=== PATIENT | male | born 1975 | race American Indian/Alaskan Native ===

== ENCOUNTER 2016-06-19 20:50 | Emergency (ER) | payer SELFPAY ==
[2016-06-19 22:06] VITALS: BP 163/105; TEMP 98; O2SAT 98
[2016-06-19] MEDS ORDERED: Sodium Chloride 0.9% 1,000 ML IV ONE (22:29)
[2016-06-19] MEDS ORDERED: Sodium Chloride 0.9% 500 ML IV ONE (22:29)
--- NOTE | 2016-06-19 22:32 | C.PDOC ---
History Of Present Illness 40 y/o male presents to the ED with complains of feeling unsteady the past few days. Pt reports walking [id number]. Pt admits to heavy alcohol intake over the past few days. Pt denies headache, vomiting, chest pain, SOB or any other complaints. Chief Complaint (Nursing): Dizziness/Lightheaded History Per: Patient History/Exam Limitations: no limitations Onset/Duration Of Symptoms: Days Current Symptoms Are (Timing): Still Present Possible Causative Factor(s): Recent Alcohol Fall Associated With With Symptoms: No Recent travel outside of the [place]: No - Symptoms Of CVA Recent Head Trauma: No Past Medical History Reviewed: Historical Data, Nursing Documentation, Vital Signs Vital Signs: Last Vital Signs Temp 98 F 06/19/16 22:03 Pulse 69 06/19/16 22:03 Resp 20 06/19/16 22:03 BP 163/105 H 06/19/16 22:03 Pulse Ox 98 06/19/16 23:45 Family History: States: Unknown Family Hx - Social History Hx Alcohol Use: Yes Hx Substance Use: No - Immunization History Hx Tetanus Toxoid Vaccination: No Hx Influenza Vaccination: No Hx Pneumococcal Vaccination: No Review Of Systems Except As Marked, All Systems Reviewed And Found Negative. Cardiovascular: Negative for: Chest Pain Respiratory: Negative for: Shortness of Breath Gastrointestinal: Negative for: Vomiting Neurological: Positive for: Other (unsteady gait). Negative for: Headache Physical Exam - Physical Exam Appears: Non-toxic, No Acute Distress Skin: Warm, Dry, No Rash Head: Atraumatic, Normacephalic Eye(s): bilateral: PERRL, EOMI Neck: Normal ROM, Supple Chest: Symmetrical Cardiovascular: Rhythm Regular, No Murmur Respiratory: Normal Breath Sounds, No Rales, No Rhonchi, No Wheezing Gastrointestinal/Abdominal: Soft Extremity: No Pedal Edema Extremity: Bilateral: Atraumatic Neurological/Psych: Oriented x3, Normal Speech, Normal Cognition, Normal Cranial Nerves, Normal Motor, Normal Sensation ED Course And Treatment - Laboratory Results Result Diagrams: 06/19/16 23:09 06/19/16 23:09 O2 Sat by Pulse Oximetry: 98 (on room air) Pulse Ox Interpretation: Normal - CT Scan/US CT head Other Rad Studies (CT/US): Read By Radiologist, Radiology Report Reviewed CT/US Interpretation: EXAM: CT Head Without Intravenous Contrast. CLINICAL HISTORY: 40 years old, male; Pain; Headache. TECHNIQUE: Axial computed tomography images of the head/brain without intravenous contrast. This CT exam. was performed using one or more of the following dose reduction techniques: automated exposure. control, adjustment of the mA and/or kV according to patient size, and/or use of iterative. reconstruction technique. COMPARISON: No relevant prior studies available. FINDINGS: Brain: No intracranial hemorrhage. No mass. No definite edema. Ventricles: No hydrocephalus. Bones/ joints: No acute fracture. Soft tissues: Unremarkable. Sinuses: Complete opacification of RIGHT frontal sinus. Scattered minimal mucosal thickening of. ethmoid sinuses. Tiny LEFT maxillary retention cyst. Mastoid air cells: No mastoid effusion. Orbits: Unremarkable as visualized. IMPRESSION: 1. No acute intracranial abnormality. 2. Sinus disease. 3. Incidental/non-acute findings are described above. Thank you for allowing us to participate in the care of your patient. Dictated and Authenticated by: Issa Morse MD. 06/19 11:44 PM Eastern Time ([place] & [place]) Medical Decision Making Medical Decision Making: Plan: CT head, EKG, labs, IV fluids Disposition Counseled Patient/Family Regarding: Diagnosis - Disposition Referrals: [facility] [Outside] Disposition: HOME/ ROUTINE Disposition Time: 02:42 Condition: STABLE Prescriptions: Meclizine [Antivert] 25 mg PO Q6 #20 tab Instructions: Vertigo (ED), Dizziness (ED), Abuse of Alcohol (ED) - POA Present On Arrival: None - Clinical Impression Clinical Impression: Dizziness, Vertigo, Alcohol abuse - Scribe Statement The provider has reviewed the documentation as recorded by the Edgar Lamas Provider Attestation: All medical record entries made by the Edgar were at my direction and personally dictated by me. I have reviewed the chart and agree that the record accurately reflects my personal performance of the history, physical exam, medical decision making, and the department course for this patient. I have also personally directed, reviewed, and agree with the discharge instructions and disposition.
[2016-06-19 23:20] LABS: CHLORIDE 97 mmol/L (98-107); POTASSIUM 3.9 mmol/L (3.6-5.2); SODIUM 137 mmol/L (132-148)
[2016-06-19 23:21] LABS: BASO % 0.4 % (0.0-2.0); EOS # 0.2 K/uL (0.0-0.7); EOS % 3.9 % (0.0-4.0); HEMATOCRIT 45.2 % (35.0-51.0); LYMPH # 2.3 K/uL (1.0-4.3); LYMPH % 38.8 % (20.0-40.0); MEAN CELL VOLUME 88.3 fL (80.0-94.0); MEAN CORPUSCULAR HEMOGLOBIN 29.4 pg (27.0-31.0); MEAN CORPUSCULAR HGB CONC 33.2 g/dL (33.0-37.0); MEAN PLATELET VOLUME 7.5 fL (7.2-11.7); MONO # 0.7 K/uL (0.0-0.8); MONO % 11.9 % (0.0-10.0); NRBC % 0.2 % (0.0-2.0); RED CELL DISTRIBUTION WIDTH 12.5 % (11.5-14.5); WHITE BLOOD COUNT 5.9 K/uL (4.8-10.8)
[2016-06-19 23:22] LABS: GFR AFRICAN-AMERICAN > 60
[2016-06-19 23:23] LABS: ALB/GLOB RATIO 1.1 (1.0-2.1); ALKALINE PHOSPHATASE 90 U/L (38-126); ALT/SGPT 38 U/L (21-72); AST/SGOT 31 U/L (17-59); BILIRUBIN,TOTAL 0.9 mg/dL (0.2-1.3); BLOOD UREA NITROGEN 19 mg/dL (9-20); CALCIUM 9.3 mg/dl (8.6-10.4); CARBON DIOXIDE 28 mmol/L (22-30); GLUCOSE,RANDOM 91 mg/dL (75-110); TOTAL PROTEIN 7.7 g/dL (6.3-8.3)
[2016-06-19 23:24] LABS: ALCOHOL SERUM < 10 mg/dl (0-10)
--- NOTE | 2016-06-19 23:44 | CT ---
EXAM: CT Head Without Intravenous Contrast. CLINICAL HISTORY: 40 years old, male; Pain; Headache TECHNIQUE: Axial computed tomography images of the head/brain without intravenous contrast. This CT exam was performed using one or more of the following dose reduction techniques: automated exposure control, adjustment of the mA and/or kV according to patient size, and/or use of iterative reconstruction technique. COMPARISON: No relevant prior studies available. FINDINGS: Brain: No intracranial hemorrhage. No mass. No definite edema. Ventricles: No hydrocephalus. Bones/joints: No acute fracture. Soft tissues: Unremarkable. Sinuses: Complete opacification of RIGHT frontal sinus. Scattered minimal mucosal thickening of ethmoid sinuses. Tiny LEFT maxillary retention cyst. Mastoid air cells: No mastoid effusion. Orbits: Unremarkable as visualized. IMPRESSION: 1. No acute intracranial abnormality. 2. Sinus disease. 3. Incidental/non-acute findings are described above.
[2016-06-20 03:32] VITALS: PULSE 60; RESP 15
--- NOTE | 2016-06-22 06:38 | CARD ---
APPROVED REPORT EKG Measurement Heart [id number] <Conclusion> Sinus bradycardia Moderate voltage criteria for LVH, may be normal variant Cannot rule out Septal infarct, age undetermined Abnormal ECG
== END 2016-06-20 03:23 | disposition home or self-care (01) ==
LOC: C.ER 20:50
DX: F10.10 Alcohol abuse, uncomplicated (principal); Y90.0 Blood alcohol level of less than 20 mg/100 ml; R42 Dizziness and giddiness
CPT/HCPCS: 70450; 80053; 85025; 93005; 99285; G0480

== ENCOUNTER 2017-03-03 09:15 | Day surgery (SDC) | payer MEDICAID ==
[2017-03-03 09:44] VITALS: BMI 25.0
[2017-03-03] MEDS ORDERED: Propofol 10 mg/ml Inj (20 ML) ONE ×3 (10:42→11:19)
[2017-03-03 11:56] VITALS: TEMP 96.9; O2SAT 100
[2017-03-03 14:11] VITALS: BP 136/88; PULSE 66; RESP 12
== END 2017-03-03 13:05 | disposition home or self-care (01) ==
LOC: C.ENDO 09:15
PROVIDERS: ATTEND Internal Medicine
DX: K63.5 Polyp of colon (principal); K62.5 Hemorrhage of anus and rectum; K64.1 Second degree hemorrhoids; K59.09 Other constipation; K57.30 Diverticulosis of large intestine without perforation or abscess without bleeding
CPT/HCPCS: 45385; 88305; J2704

== ENCOUNTER 2018-08-05 18:40 | Emergency (ER) | payer MEDICAID ==
[2018-08-05 18:40] VITALS: BMI 25.0
[2018-08-05 18:49] VITALS: TEMP 98.8
--- NOTE | 2018-08-05 19:15 | C.PDOC ---
Time Seen by Provider: 08/05/18 19:14 Chief Complaint (Nursing): Chest Pain Past Medical History Vital Signs: Last Vital Signs Temp 98.8 F 08/05/18 18:47 Pulse 59 L 08/05/18 19:01 Resp 18 08/05/18 18:47 BP 131/75 08/05/18 19:01 Pulse Ox 96 08/05/18 18:47 Primary Care Provider: FAMILY PROVIDER,NO - Medical History PMH: Denies: Colonic Polyps, Fractures, Sleep Apnea, TIA Family History: States: Unknown Family Hx - Social History Hx Alcohol Use: Yes Hx Substance Use: No - Immunization History Hx Tetanus Toxoid Vaccination: No Hx Influenza Vaccination: No Hx Pneumococcal Vaccination: No ED Course And Treatment ECG: Interpreted By Me, Viewed By Me ECG Rhythm: Sinus Rhythm (62), Nonspecific Changes O2 Sat by Pulse Oximetry: 96 Pulse Ox Interpretation: Normal - Radiology CXR: Interpreted by Me, Viewed By Me Disposition Counseled Patient/Family Regarding: Studies Performed, Diagnosis - Disposition Disposition Time: 19:14
[2018-08-05 19:30] VITALS: BP 131/72; PULSE 63; RESP 16; O2SAT 97
--- NOTE | 2018-08-05 19:40 | C.PDOC ---
History Of Present Illness The patient presents to the ED requesting for his blood to be checked. Patient states he feels like his blood has been "running slow." Contrary to triage, patient denies chest pain, palpitations, dizziness, nausea, vomiting, vision change or weakness at this time. Time Seen by Provider: 08/05/18 19:14 Chief Complaint (Nursing): Chest Pain History Per: Patient History/Exam Limitations: no limitations Onset/Duration Of Symptoms: Days Current Symptoms Are (Timing): Still Present Additional History Per: Patient Past Medical History Reviewed: Historical Data, Nursing Documentation, Vital Signs Vital Signs: Last Vital Signs Temp 98.8 F 08/05/18 18:47 Pulse 63 08/05/18 19:29 Resp 16 08/05/18 19:29 BP 131/72 08/05/18 19:29 Pulse Ox 97 08/05/18 19:29 Primary Care Provider: FAMILY PROVIDER,NO - Medical History PMH: No Chronic Diseases Denies: Colonic Polyps, Fractures, Sleep Apnea, TIA Surgical History: No Surg Hx Family History: States: Unknown Family Hx - Social History Hx Alcohol Use: Yes Hx Substance Use: No - Immunization History Hx Tetanus Toxoid Vaccination: No Hx Influenza Vaccination: No Hx Pneumococcal Vaccination: No Review Of Systems Constitutional: Positive for: Other (blood check ). Negative for: Fever, Chills Cardiovascular: Negative for: Chest Pain, Palpitations Respiratory: Negative for: Cough, Shortness of Breath Gastrointestinal: Negative for: Nausea, Vomiting, Abdominal Pain Musculoskeletal: Negative for: Back Pain Skin: Negative for: Rash, Lesions, Jaundice, Bruising Neurological: Negative for: Weakness, Numbness Physical Exam - Physical Exam Appears: Non-toxic, No Acute Distress, Other (anxious ) Skin: Warm, Dry Head: Normacephalic Oral Mucosa: Moist Neck: Supple Chest: Symmetrical, No Deformity, No Tenderness Cardiovascular: Rhythm Regular, No Murmur Respiratory: No Rales, No Rhonchi, No Wheezing Neurological/Psych: Oriented x3 ED Course And Treatment ECG: Interpreted By Me, Viewed By Me ECG Rhythm: Sinus Rhythm (62), Nonspecific Changes O2 Sat by Pulse Oximetry: 97 (on RA) Pulse Ox Interpretation: Normal - Radiology CXR: Interpreted by Me, Viewed By Me Progress Note: Pt refuses any blood work. Agreable to accucheck , since he wants to know how high his sugar is. went to talk to the pt again about doing blood work, but pt had eloped Disposition Counseled Patient/Family Regarding: Studies Performed, Diagnosis - Disposition Disposition: ELOPEMENT - ER ONLY Disposition Time: 19:14 Condition: FAIR Forms: [facility] (Korean) - Clinical Impression Clinical Impression: Encounter for medical assessment - Scribe Statement The provider has reviewed the documentation as recorded by the Scribe (Nellie Pinto) Provider Attestation: All medical record entries made by the Scribe were at my direction and personally dictated by me. I have reviewed the chart and agree that the record accurately reflects my personal performance of the history, physical exam, medical decision making, and the department course for this patient. I have also personally directed, reviewed, and agree with the discharge instructions and disposition.
--- NOTE | 2018-08-06 12:11 | CARD ---
APPROVED REPORT Date of service: 08/05/2018 EKG Measurement Heart [id number] <Conclusion> Normal sinus rhythm Minimal voltage criteria for LVH, may be normal variant Borderline ECG
== END 2018-08-05 19:56 | disposition left against medical advice (07) ==
LOC: C.ER 18:40
DX: Z00.00 Encounter for general adult medical examination without abnormal findings (principal)